=== PATIENT | male | born 1975 | race African-American/Black ===

== ENCOUNTER → 2021-04-17 | Day surgery (SDC) | payer OTHER ==
[~2021-04-17] VITALS: Ht 175.3 cm; Wt 72.0 kg
[~2021-04-17] MED LIST: IV RINGERS,LACTATED 1000ML 1,000 ML IV SCH; LIDOCAINE 2% PF 5 ML VIAL. ONE; PROPOFOL 10 MG/ML (20ML) VIAL. IV ONE
[2021-04-17 13:38] VITALS: BP 142/65
[2021-04-17 15:17] VITALS: BP 122/59
== END | disposition home or self-care (01) ==
LOC: ENDOS 13:15
PROVIDERS: ATTEND Internal Medicine Gastroenterology
DX: Z12.11 Encounter for screening for malignant neoplasm of colon (principal); K64.0 First degree hemorrhoids; K63.89 Other specified diseases of intestine; G47.30 Sleep apnea, unspecified; M19.90 Unspecified osteoarthritis, unspecified site; Z87.891 Personal history of nicotine dependence; Z72.89 Other problems related to lifestyle; Z98.890 Other specified postprocedural states; Z79.899 Other long term (current) drug therapy; Z88.8 Allergy status to other drugs, medicaments and biological substances
CPT/HCPCS: 45378; J2704